=== PATIENT | female | born 1950 | race Caucasian/White ===

== ENCOUNTER 2019-03-09 11:13 | Outpatient (CLI) | payer MEDICARE, OTHER, SELFPAY ==
--- NOTE | 2019-03-09 11:26 | XRR_ITS ---
PROCEDURE INFORMATION: Exam: XR Chest, 2 Views Exam date and time: 03/09/2019 11:52 AM Age: 68 years old Clinical indication: Cough and fever; Additional info: Viral uri w/cough TECHNIQUE: Imaging protocol: XR of the chest Views: Frontal and lateral upright views. COMPARISON: No relevant prior studies available. FINDINGS: Lungs: The lungs are clear bilaterally. The pulmonary vasculature is normal. Pleural space: No pleural effusion. No pneumothorax. Heart/Mediastinum: The heart is normal in size and contour. Vasculature: Mild tortuosity of the descending thoracic aorta. Bones/joints: Degenerative disk disease is present at mid-thoracic spine disk levels. Other findings: The gallbladder is likely surgically absent, with metallic clips overlying the gallbladder fossa (lateral image). XR/XR chest 2V* 19498 IMPRESSION: 1. No acute cardiopulmonary abnormality identified. 2. Prior cholecystectomy.
== END 2019-03-09 11:14 | disposition home or self-care (01) ==
LOC: RAD 11:21
PROVIDERS: Family Provider Internal Medicine; PCP Internal Medicine; Visit Provider Internal Medicine
DX: J06.9 Acute upper respiratory infection, unspecified (principal); B97.89 Other viral agents as the cause of diseases classified elsewhere; Z90.49 Acquired absence of other specified parts of digestive tract
CPT/HCPCS: 71046

== ENCOUNTER 2019-04-11 04:58 | Outpatient (CLI) | payer MEDICARE, OTHER, SELFPAY | END 2019-04-11 04:59 | disposition home or self-care (01) | LOC: LAB 05:09 | PROVIDERS: Family Provider Internal Medicine; PCP Internal Medicine; Visit Provider Internal Medicine | DX: Z76.89 Persons encountering health services in other specified circumstances (principal) ==

== ENCOUNTER 2019-04-12 04:32 | Outpatient (CLI) | payer MEDICARE, OTHER, SELFPAY ==
[2019-04-12 04:57] LABS: Basophils # 0.1 10^3/uL (0.0-0.1); Basophils % 1.1 %; Eosinophils # 0.2 10^3/uL (0.0-0.8); Eosinophils % 2.8 %; Hematocrit 45.9 % (37.0-47.0); Hemoglobin 14.9 g/dL (11.5-15.3); Lymphocytes # 2.6 10^3/uL (0.8-4.8); Lymphocytes % 35.3 %; Mean Corpuscular HGB Conc 32.5 g/dL (30.0-36.0); Mean Corpuscular Hemoglobin 29.9 pg (28.0-34.0); Mean Corpuscular Volume 92.2 fL (81-99); Mean Platelet Volume 9.2 fL (7.4-10.4); Monocytes # 0.5 10^3/uL (0.2-0.9); Monocytes % 6.8 %; Neutrophils % 53.5 %; Nucleated Red Blood Cells % 0 %; Platelet Count 242 10^3/cmm (130-400); Red Blood Count 4.98 10^6/uL (4.1-5.3); Red Cell Distribution Width 13.2 % (12.1-15.1); White Blood Count 7.5 10^3/uL (4.0-10.0)
[2019-04-12 05:14] LABS: Alanine Aminotransferase 18 U/L (0-33); Anion Gap 17.4 (5-19); Blood Urea Nitrogen 20 mg/dL (8-23); Calcium 9.8 mg/dL (8.5-10.5); Carbon Dioxide 25 mmol/L (22-29); Chloride 103 mmol/L (98-107); Chol HDL Ratio 3.81 mg/dL (0.0-4.40); Cholesterol 160 mg/dL (0-200); Glomerular Filtration Rate 54.8 mL/min (90-130); Glucose 133 mg/dL (65-115); HDL Cholesterol 42 mg/dL (60-100); LDL Cholesterol Calculated 88 mg/dL (50-129); Osmolality Calculated 290 mOsm/kg (285-295); Potassium 4.4 mmol/L (3.5-5.1); Sodium 141 mmol/L (136-145); Triglycerides 151 mg/dL (0-150)
[2019-04-12 05:20] LABS: Thyroid Stimulating Hormone 4.38 uIU/mL (0.27-4.20)
[2019-04-12 05:38] LABS: Estmated Average Glucose 117; Hemoglobin A1C 5.7 % (4.0-6.0)
== END 2019-04-12 04:33 | disposition home or self-care (01) ==
LOC: LAB 04:35
PROVIDERS: Family Provider Internal Medicine; PCP Internal Medicine; Visit Provider Internal Medicine
DX: E78.5 Hyperlipidemia, unspecified (principal); I10 Essential (primary) hypertension
CPT/HCPCS: 36415; 80048; 80061; 83036; 84443; 84460; 85025

== ENCOUNTER → 2019-05-11 10:00 | Outpatient (BNVA) | payer MEDICARE, OTHER, SELFPAY | PROVIDERS: Family Provider Internal Medicine; PCP Internal Medicine; Visit Provider Internal Medicine | DX: E78.5 Hyperlipidemia, unspecified (principal); R73.09 Other abnormal glucose | CPT/HCPCS: 83036; 84443 ==

== ENCOUNTER → 2019-05-30 15:13 | Outpatient (BNVA) | payer MEDICARE, OTHER, SELFPAY | PROVIDERS: Family Provider Internal Medicine; PCP Internal Medicine; Visit Provider Nurse Practitioner Family | DX: R31.29 Other microscopic hematuria (principal); R39.15 Urgency of urination | CPT/HCPCS: 81001 ==

== ENCOUNTER → 2019-10-19 11:15 | Outpatient (BNVA) | payer MEDICARE, OTHER, SELFPAY | PROVIDERS: Family Provider Internal Medicine; PCP Internal Medicine; Visit Provider Internal Medicine | DX: J06.9 Acute upper respiratory infection, unspecified (principal); Z20.828 Contact with and (suspected) exposure to other viral communicable diseases | CPT/HCPCS: 87635 ==

== ENCOUNTER 2021-06-07 08:22 | Outpatient (CLI) | payer MEDICARE, OTHER, SELFPAY ==
--- NOTE | 2021-06-07 08:36 | XR_ITS ---
WS: [id number] Chest 2 views, 06/07/2021 Clinical Data: COUGH Comparison: None. Findings: No nodules, masses or effusions are seen. The heart is normal. The pulmonary vascularity is not increased. No pneumonia or pneumothorax is seen. The diaphragms are flattened. The aortic arch a nd descending thoracic aorta show mild calcification and tortuosity. There are clips in the right upp er quadrant from a cholecystectomy. There is a decorative item overlying the umbilicus. XR/XR chest 2V* [id number] Impression: Atherosclerosis and hyperinflation.
== END 2021-06-07 08:23 | disposition home or self-care (01) ==
PROVIDERS: Family Provider Internal Medicine; PCP Internal Medicine; Visit Provider Family Medicine
DX: R05.9 Cough, unspecified (principal); I70.90 Unspecified atherosclerosis
CPT/HCPCS: 71046

== ENCOUNTER → 2021-07-09 08:57 | Outpatient (BNVA) | payer MEDICARE, OTHER, SELFPAY | PROVIDERS: Family Provider Internal Medicine; PCP Family Medicine; Visit Provider Urology | DX: R39.15 Urgency of urination (principal); R31.29 Other microscopic hematuria | CPT/HCPCS: 52000; 81003 ==

== ENCOUNTER 2022-03-14 12:48 | Outpatient (CLI) | payer MEDICARE, OTHER, SELFPAY ==
--- NOTE | 2022-03-14 13:12 | XR_ITS ---
WS: [id number] RIGHT SHOULDER: 3 VIEW(S) TECHNIQUE: Internal and external rotation with Y view. HISTORY: Shoulder pain right COMPARISON: None available. Mild narrowing of the AC joint. No fractures or dislocation. Mild osteopenia. Normal glenohumeral joint. XR/XR shoulder RT min 2V* [id number] IMPRESSION: Mild AC joint arthritis.
== END 2022-03-14 12:49 | disposition home or self-care (01) ==
LOC: RAD 12:52
PROVIDERS: PCP Family Medicine; Visit Provider Family Medicine
DX: M19.011 Primary osteoarthritis, right shoulder (principal)
CPT/HCPCS: 73030

== ENCOUNTER 2022-05-02 07:37 | Outpatient (CLI) | payer MEDICARE, OTHER, SELFPAY ==
--- NOTE | 2022-05-02 08:00 | MR_ITS ---
WS: [id number] MRI RIGHT SHOULDER HISTORY: Right shoulder pain COMPARISON: Radiographs 03/14/2022 TECHNIQUE: Multiplanar sequences of the shoulder joint are submitted. Mild AC joint narrowing with diffuse small osteophytes. Mild encroachment upon the supraspinatus myot endinous insertion. Subacromial impingement. Humeral head is high riding abutting the undersurface of the acromion with remodeling. Fluid in the subacromial and subdeltoid bursa. Biceps tendon is not id entified in the bicipital groove. No os acromion. Large joint effusion with a few small loose bodies in the effusion. High riding humeral head elevated from the glenoid. Complete tear with retraction of the supraspinatus. Tendon is noted along the medi al aspect of the humeral head. Severe atrophy of the supraspinatus muscle. Insertion site tear of the infraspinatus without significant retraction. Mild atrophy. Diffuse increased signal throughout the subscapularis tendon. Tendon is slightly wavy suggesting possible tear distally. There is also fluid extending along the interstitial portion of the tendon suggesting there is a more distal tear. No acute fractures. Loss of the normal cortex around the humeral head. No labral tear identified. IMPRESSION: 1. Complete tear with retraction supraspinatus tendon. Tendon retracted to the medial humeral head. 2. Insertion site tear infraspinatus tendon without retraction. 3. Advanced tendinopathy subscapularis tendon and distal tear is suspected although not visualized. There is fluid extending along the tendon sheath. 4. Severe atrophy supraspinatus muscle and mild atrophy infraspinatus muscle. 5. Biceps tendon dislocated and/or torn. Not identified in the bicipital groove. 6. Mild AC joint arthritis. 7. Large joint effusion. Small loose bodies throughout the joint effusion.
== END 2022-05-02 07:38 | disposition home or self-care (01) ==
PROVIDERS: PCP Family Medicine; Visit Provider Family Medicine
DX: M25.411 Effusion, right shoulder; M62.511 Muscle wasting and atrophy, not elsewhere classified, right shoulder; M13.811 Other specified arthritis, right shoulder; S46.811A Strain of other muscles, fascia and tendons at shoulder and upper arm level, right arm, initial encounter; X58.XXXA Exposure to other specified factors, initial encounter
CPT/HCPCS: 73221

== ENCOUNTER → 2022-05-22 09:26 | Outpatient (BNVA) | payer MEDICARE, OTHER, SELFPAY | PROVIDERS: PCP Family Medicine; Referring Provider Family Medicine; Visit Provider Student in an Organized Health Care Education/Training Program | DX: M75.101 Unspecified rotator cuff tear or rupture of right shoulder, not specified as traumatic (principal); M19.011 Primary osteoarthritis, right shoulder | CPT/HCPCS: 99204 ==

== ENCOUNTER → 2022-06-16 08:47 | Outpatient (BNVA) | payer MEDICARE, OTHER, SELFPAY | PROVIDERS: PCP Family Medicine; Visit Provider Student in an Organized Health Care Education/Training Program | DX: M75.101 Unspecified rotator cuff tear or rupture of right shoulder, not specified as traumatic (principal); X58.XXXA Exposure to other specified factors, initial encounter; M19.011 Primary osteoarthritis, right shoulder; S46.211A Strain of muscle, fascia and tendon of other parts of biceps, right arm, initial encounter | CPT/HCPCS: 99214 ==

== ENCOUNTER → 2022-07-28 08:39 | Outpatient (BNVA) | payer MEDICARE, OTHER, SELFPAY | PROVIDERS: PCP Family Medicine; Visit Provider Student in an Organized Health Care Education/Training Program | DX: M75.101 Unspecified rotator cuff tear or rupture of right shoulder, not specified as traumatic (principal); M54.50 Low back pain, unspecified | CPT/HCPCS: 99214 ==

== ENCOUNTER → 2022-08-05 08:07 | Outpatient (BNVA) | payer MEDICARE, OTHER, SELFPAY | PROVIDERS: PCP Family Medicine; Visit Provider Orthopaedic Surgery | DX: M43.16 Spondylolisthesis, lumbar region (principal); M54.50 Low back pain, unspecified | CPT/HCPCS: 72110; 99204 ==

== ENCOUNTER → 2022-09-05 08:00 | Outpatient (BNVA) | payer MEDICARE, OTHER, SELFPAY | PROVIDERS: PCP Family Medicine; Visit Provider Family Medicine | DX: Z51.81 Encounter for therapeutic drug level monitoring (principal); R73.09 Other abnormal glucose; Z13.220 Encounter for screening for lipoid disorders; E55.9 Vitamin D deficiency, unspecified | CPT/HCPCS: 80053; 80061; 82306; 83036; 85025 ==

== ENCOUNTER → 2022-10-13 07:54 | Outpatient (BNVA) | payer MEDICARE, OTHER, SELFPAY | PROVIDERS: PCP Family Medicine; Referring Provider Dermatology; Visit Provider Podiatrist Foot & Ankle Surgery | DX: M21.611 Bunion of right foot (principal); G62.9 Polyneuropathy, unspecified | CPT/HCPCS: 73630; 99203 ==

== ENCOUNTER → 2022-12-29 10:35 | Outpatient (BNVA) | payer MEDICARE, OTHER, SELFPAY | PROVIDERS: PCP Family Medicine; Visit Provider Nurse Practitioner Family | DX: L70.0 Acne vulgaris (principal); L82.1 Other seborrheic keratosis; L82.0 Inflamed seborrheic keratosis; D22.5 Melanocytic nevi of trunk; L57.8 Other skin changes due to chronic exposure to nonionizing radiation; L81.4 Other melanin hyperpigmentation | CPT/HCPCS: 17110; 99214 ==

== ENCOUNTER → 2023-06-05 08:04 | Outpatient (BNVA) | payer MEDICARE, OTHER, SELFPAY | PROVIDERS: PCP Family Medicine; Visit Provider Nurse Practitioner Family | DX: L82.0 Inflamed seborrheic keratosis (principal); L82.1 Other seborrheic keratosis; D22.5 Melanocytic nevi of trunk; L57.8 Other skin changes due to chronic exposure to nonionizing radiation; C44.519 Basal cell carcinoma of skin of other part of trunk; C44.91 Basal cell carcinoma of skin, unspecified | CPT/HCPCS: 11102; 17110; 99213 ==

== ENCOUNTER → 2023-11-10 07:54 | Outpatient (BNVA) | payer MEDICARE, OTHER, SELFPAY | PROVIDERS: PCP Family Medicine; Visit Provider Family Medicine | DX: E55.9 Vitamin D deficiency, unspecified (principal); Z51.81 Encounter for therapeutic drug level monitoring; Z13.220 Encounter for screening for lipoid disorders | CPT/HCPCS: 80053; 80061; 82306; 85025 ==

== ENCOUNTER → 2023-11-24 14:25 | Outpatient (BNVA) | payer MEDICARE, OTHER, SELFPAY | PROVIDERS: PCP Family Medicine; Referring Provider Family Medicine; Visit Provider Surgery | DX: Z12.11 Encounter for screening for malignant neoplasm of colon (principal) | CPT/HCPCS: 99024; 99204 ==

== ENCOUNTER → 2023-12-30 08:09 | Outpatient (BNVA) | payer MEDICARE, OTHER, SELFPAY | PROVIDERS: PCP Family Medicine; Visit Provider Nurse Practitioner Family | DX: L82.1 Other seborrheic keratosis (principal); D22.5 Melanocytic nevi of trunk; L57.8 Other skin changes due to chronic exposure to nonionizing radiation; L81.4 Other melanin hyperpigmentation | CPT/HCPCS: 17000; 99213 ==

== ENCOUNTER 2023-12-31 09:34 | Day surgery (SDC) | payer MEDICARE, OTHER, SELFPAY ==
[2023-12-31 09:49] VITALS: BP 101/71; PULSE 100; RESP 16; TEMP 36.3; O2SAT 94; BMI 20.5
[2023-12-31] MEDS: sodium chloride 0.9% 1,000 ML 30 ML IV (10:00)
--- NOTE | 2023-12-31 10:14 | W.PM.OPSFHP ---
Same Day Surgery H&P Indication for Procedure/HPI DATE OF PROCEDURE: December 31, 2023 CHIEF COMPLAINT/INDICATIONFOR SURGICAL PROCEDURE: need for screening colonoscopy PREOP DIAGNOSIS: need for screening colonoscopy PLANNED PROCEDURE: Operation Date: 12/31/23 11:00 Proposed Procedures p Colonoscopy 18172, G0105, Z86.010, Z12.11(Not Applicable) - Chun Santos MD Medications/Allergies* Home Medications Medication Instructions Recorded Confirmed Type multivitamin,aj-mglv-ztedhfog 1 tab PO DAILY 05/30/19 12/31/23 History (Complete Multivitamin tablet) vit C 250 mg-E 90 mg-zinc 40 1 tab PO BID 07/09/21 12/31/23 History mg-copper 1 lb-ghvrhb-avjiya chew tablet (PreserVision AREDS-2) Allergies/Adverse Reactions Allergy/AdvReac Type Severity Reaction Status Date / Time Penicillins Allergy UNKNOWN Verified 12/31/23 09:45 Current Medications: Generic Name Dose Route Start Last Admin Trade Name Freq PRN Reason Stop Dose Admin Sodium Chloride 1,000 mls @ 30 mls/hr 12/31/23 09:45 12/31/23 10:00 Sodium Chloride 0.9% IV 01/01/24 09:44 30 mls/hr .Q24H YAMILET Administration Pertinent History/Comorbid Conditions* Medical History (Updated 12/05/23 @ 19:03 by Messi Xiao MD) Urinary urgency Microscopic hematuria Essential (primary) hypertension H/O adenomatous polyp of colon Hyperlipidemia Surgical History (Updated 10/01/22 @ 10:18 by Messi Xiao MD) Hx of cataract surgery April and May of 2022 H/O: hysterectomy S/P cholecystectomy H/O colonoscopy 2018 Family History (Updated 03/08/19 @ 14:58 by Nedra Downey LPN) Diabetes Heart disease Stroke Social History Smoking and tobacco/nicotine status: current every day tobacco/nicotine user Quit status (tobacco/nicotine): has quit using Former quit date comment: 2022 Alcohol intake: current Alcohol intake frequency: holidays/special occasions only Substance/Drug Use: unknown Adopted: No Caregiver/support person: No Lives independently: No Household members: spouse Marital status: Number of children: 2 Current occupational status: retired Current gender identity: Female Pertinent Exam Findings alert, oriented x 3 and clear to auscultation bilaterally Recommendations Surgery/Procedure today Coding Level of Care Code Acute Code for Chg Fwd
--- NOTE | 2023-12-31 10:43 | ANES.PREANE2 ---
Pre-Anesthetic Assessment Height/Weight: Height 1.66 m Weight 56.699 kg Temp Pulse Resp BP Pulse Ox O2 Del Method 97.3 F L 100 16 101/71 94 Room Air 12/31/23 09:49 12/31/23 09:49 12/31/23 09:49 12/31/23 09:49 12/31/23 09:49 12/31/23 09:49 Preop Diagnosis: need for screening colonoscopy Operation Date: 12/31/23 11:00 Proposed Procedures p Colonoscopy 93563, G0105, Z86.010, Z12.11(Not Applicable) - Chun Santos MD Familial anesthetic complications: None Was Beta Niki taken within 24 hours: N/A Was Clonidine taken within 24 hours: N/A Last intake: Intake Last Liquid Date 12/30/23 Last Liquid Time 22:30 Last Solid Date 12/29/23 Last Solid Time 15:00 Social No alcohol and No tobacco Exam alert, oriented x 3, clear to auscultation bilaterally and regular rate & rhythm Airway Mallampati: Class I Dentition: full CV/HEM Hypertension Metabolic Hyperlipidemia Anesthetic Plan ASA status: 2 Anesthesia: MAC Risk of > 500 ml blood loss (7ml/kg in children): No Medications/Allergies Home Medications Medication Instructions Recorded Confirmed Last Taken Type multivitamin,ua-vanm-xqcmvuak 1 tab PO DAILY 05/30/19 12/31/23 12/30/23 History (Complete Multivitamin tablet) vit C 250 mg-E 90 mg-zinc 40 1 tab PO BID 07/09/21 12/31/23 Unknown History mg-copper 1 du-nyveum-qnlugd chew tablet (PreserVision AREDS-2) yziklmsidman-ucvqddapbunz-thlkaqgbk 1 applic topical .hs #30 grams 12/23/21 12/31/23 Unknown Rx 0.01 %-4 %-0.05 % topical cream (Tri-Angela) amlodipine 2.5 mg tablet 2.5 mg PO DAILY #90 tabs 04/06/23 12/31/23 12/31/23 Rx atorvastatin 10 mg tablet 10 mg PO DAILY #90 tabs 04/06/23 12/31/23 12/30/23 Rx lisinopril 40 mg tablet 40 mg PO DAILY #90 tabs 07/08/23 12/31/23 12/30/23 Rx hydrochlorothiazide 12.5 mg tablet 12.5 mg PO DAILY #90 tabs 11/18/23 12/31/23 12/30/23 Rx Allergies Allergy/AdvReac Type Severity Reaction Status Date / Time Penicillins Allergy UNKNOWN Verified 12/31/23 09:45 Current Medications Generic Name Dose Route Start Last Admin Trade Name Freq PRN Reason Stop Dose Admin Sodium Chloride 1,000 mls @ 30 mls/hr 12/31/23 09:45 12/31/23 10:00 Sodium Chloride 0.9% IV 01/01/24 09:44 30 mls/hr .Q24H YAMILET Administration PFSH Anesthesia Medical History Urinary urgency Microscopic hematuria Essential (primary) hypertension H/O adenomatous polyp of colon Hyperlipidemia Surgical History Hx of cataract surgery April and May of 2022 H/O: hysterectomy S/P cholecystectomy H/O colonoscopy 2018 Family History Other Diabetes Heart disease Stroke Social History Smoking and tobacco/nicotine status: current every day tobacco/nicotine user Quit status (tobacco/nicotine): has quit using Former quit date comment: 2022 Alcohol intake: current Alcohol intake frequency: holidays/special occasions only Substance/Drug Use: unknown Adopted: No Caregiver/support person: No Lives independently: No Household members: spouse Marital status: Number of children: 2 Current occupational status: retired Current gender identity: Female Data Anesthesia Cardiac Studies: No Data to Display
[2023-12-31 11:50] VITALS: BP 89/60; PULSE 85; RESP 12; TEMP 36.2; O2SAT 92
[2023-12-31 12:05] VITALS: BP 111/70; PULSE 77; RESP 18; O2SAT 96
--- NOTE | 2023-12-31 12:25 | ANE.PACU2 ---
Inpatient post-anesthesia follow up: Airway intact: Yes Vital signs: Temperature 97.1 F Pulse Rate 77 Respiratory Rate 18 Blood Pressure 111/70 Pulse Oximetry 96 Oxygen Delivery Me thod Room Air Oxygen Flow Rate Fraction of Inspir ed Oxygen Hydration adequate: Yes Nausea and vomiting: No Pain level: 1 Mental status: Baseline
== END 2023-12-31 12:25 | disposition home or self-care (01) ==
PROVIDERS: PCP Family Medicine; Visit Provider Surgery
PROC: 0DJD8ZZ Inspection of Lower Intestinal Tract, Via Natural or Artificial Opening Endoscopic (ICD-10-PCS; CPT 45378; principal; 2023-12-31 11:00)
DX: Z12.11 Encounter for screening for malignant neoplasm of colon (principal); Z86.0100 Personal history of colon polyps, unspecified; K57.30 Diverticulosis of large intestine without perforation or abscess without bleeding; D12.5 Benign neoplasm of sigmoid colon; I10 Essential (primary) hypertension; E78.5 Hyperlipidemia, unspecified; Z87.891 Personal history of nicotine dependence
CPT/HCPCS: 45380; 88305; J2704; J7030

== ENCOUNTER → 2024-01-12 08:46 | Outpatient (BNVA) | payer MEDICARE, OTHER, SELFPAY | PROVIDERS: PCP Family Medicine; Visit Provider Surgery | DX: Z09 Encounter for follow-up examination after completed treatment for conditions other than malignant neoplasm (principal) | CPT/HCPCS: 99213 ==

== ENCOUNTER → 2024-06-28 08:35 | Outpatient (BNVA) | payer MEDICARE, OTHER, SELFPAY | PROVIDERS: PCP Family Medicine; Visit Provider Nurse Practitioner Family | DX: L81.4 Other melanin hyperpigmentation (principal); L57.8 Other skin changes due to chronic exposure to nonionizing radiation; D22.5 Melanocytic nevi of trunk; L82.1 Other seborrheic keratosis; Z08 Encounter for follow-up examination after completed treatment for malignant neoplasm; Z85.828 Personal history of other malignant neoplasm of skin; L57.0 Actinic keratosis | CPT/HCPCS: 17000; 99213 ==

== ENCOUNTER → 2025-01-30 07:43 | Outpatient (BNVA) | payer MEDICARE, OTHER, SELFPAY | PROVIDERS: PCP Family Medicine; Visit Provider Family Medicine | DX: Z00.00 Encounter for general adult medical examination without abnormal findings (principal); R31.29 Other microscopic hematuria; R25.2 Cramp and spasm; Z13.6 Encounter for screening for cardiovascular disorders; R73.09 Other abnormal glucose; Z51.81 Encounter for therapeutic drug level monitoring; E55.9 Vitamin D deficiency, unspecified | CPT/HCPCS: 80053; 80061; 81000; 82306; 83036; 83735; 85025 ==